=== PATIENT | female | born 1945 | race Caucasian/White ===

== ENCOUNTER 2023-05-09 04:29 | Observation (INO) | payer MEDICARE, BC, SELFPAY ==
[2023-05-08 23:09] VITALS: BP 164/95
[2023-05-09] VITALS (13 sets, daily range): BP systolic 112–172; BP diastolic 68–87; PULSE 71; O2SAT 97; BMI 24.3; BMI 23.7
[2023-05-09 00:39] LABS: Hematocrit 38.8 % (37.0-47.0); Hemoglobin 13.2 g/dL (12.0-16.0); Mean Corpuscular Volume 85.3 fL (81.0-99.0); Mean Platelet Volume 8.8 fL (7.4-10.4); Platelet Count 225 10^3/uL (130-400); Red Blood Cell Count 4.55 10^6/uL (4.20-5.40); White Blood Cell Count 8.4 10^3/uL (4.8-10.8)
[2023-05-09 00:52] LABS: ALT (SGPT) 29 U/L (0-35); AST (SGOT) 35 U/L (14-36); Albumin 3.8 g/dl (3.5-5.0); Alkaline Phosphatase 93 U/L (38-126); Blood Urea Nitrogen 22 mg/dl (7-17); Calcium 9.5 mg/dl (8.4-10.2); Carbon Dioxide 30 mmol/L (22-30); Chloride 100 mmol/L (98-107); Estimated Creatinine Clearance 42 ml/min; Glucose 130 mg/dl (70-99); Potassium 3.2 mmol/L (3.5-5.1); Sodium 138 mmol/L (135-145); Total Bilirubin 0.6 mg/dl (0.2-1.3); Total Protein 6.3 g/dl (6.3-8.2); eGFR > 60.00
--- NOTE | 2023-05-09 01:00 | ED.GENMED ---
History of Present Illness
General
Chief Complaint: Blood Pressure Problem
Source: patient
Exam Limitations: none
Time Seen by Provider: 05/08/23 23:57
Travel History
Have you had any contact with someone who has COVID-19?: No
Do you have any symptoms of coronavirus? Fever > 100 degrees, chills, cough, shortness of breath, sore throat, loss of taste or smell, muscle aches, or headache?: No
History of Present Illness
History of Present Illness:
77-year-old female to 3 days of pulsating sensation in her left ear. Some mild tingling to left arm this evening. Mostly concerned with elevated blood pressure in the 160s over 80s range. Normally much better. Minimal headache. No other acute
neurologic symptoms.
Past History
Past History
ED Past Medical History: HTN
ED Past Surgical History: None
Phy Exam
Physical Exam
Physical Exam:
GENERAL: Alert and oriented in no apparent distress
EYE: Orbits normal. Extraocular muscles intact
NECK: Supple, no carotid bruits
ENT: Pharynx without erythema
CARDIAC: Regular rate and rhythm without any obvious murmurs.
LUNGS: Clear breath sounds,normal
ABDOMEN: Soft, without focal tenderness or distention
NEUROLOGICAL: Alert and oriented , cranial nerves II through XII intact. Speech normal. [id number] normal.
SKIN: Warm and dry, no rash or lesion, no discoloration, skin intact.
MUSCULOSKELETAL: No edema,no deformity.Good color
PSYCH: Normal and appropriate interaction.
Course
Orders/Labs/Results
Orders:
Orders
05/08/23 23:58
Cardiac Monitoring- Treatment ONCE
EKG- Treatment ONCE
Complete Blood Count/No Diff Urgent
Comprehensive Metabolic Panel Urgent
Troponin I Urgent
05/09/23 00:04
CT Head & Neck Angio W/wo IV Urgent
Comment:
Reason For Exam: Hypertension. Pulsating left ear
05/09/23 02:05
Aspirin Chewable [Low Strength Aspirin] 324 mg PO NOW STA
05/09/23 03:11
Potassium Chloride [KCl] 40 meq PO NOW ONE
05/09/23 03:31
Admit/Transfer Patient As Directed
Co-Sign Provider:
Level of Care: Observation services
Assign to:: Telemetry
Physician / Group: Fiordaliza Sewell
Diagnosis: tinnitus; concern for vertebral artery dissection
Reason for Telemetry: CVA/TIA
Date to Stop Telemetry: 05/12/23
Time to Stop Telemetry: 11:00
05/09/23 03:32
Code Status As Directed
Resuscitation Status: Full Code
05/09/23 05:26
Acetaminophen [Tylenol] 650 mg PO Q4HPRN PRN
05/09/23 05:26
MA Neck With Contrast Routine
Comment:
Reason For Exam: possible dissection seen on CTA R vertebral artery
Recent pill cam endoscopy?: No
Activity As Directed
Activity Level: As Tolerated
Neurological Checks As Directed
Frequency: q4h
Additional Instructions:: q4h x 24h upon admission to the floor, then qshift & with any change in condition
and mental status
Pneumatic Compression Sleeves As Directed
Type: Knee high
Vital Signs As Directed
Frequency: Per unit guidelines
DX Deep Vein Thrombosis Video Routine
05/09/23 05:36
Basic Metabolic Panel IN AM
Cardiovascular Evaluation IN AM
Magnesium IN AM
05/09/23 08:00
Pindolol [Visken] 5 mg PO DAILY
05/09/23 22:00
Atorvastatin [Lipitor] 10 mg PO HS
05/10/23 08:00
Aspirin Chewable [Low Strength Aspirin] 81 mg PO DAILY
05/12/23 11:00
DC Protocol for Telemetry ONCE
Abnormal Lab Results
05/09/23
00:23
Potassium 3.2 L mmol/L
(3.5-5.1)
BUN 22 H mg/dl
(7-17)
Glucose 130 H mg/dl
(70-99)
05/09/23 00:23
05/09/23 00:23
Vital Signs
Initial and Last Documented VS:
Initial Vital Signs
Temp Pulse Resp BP Pulse Ox
99.2 F 81 22 164/95 99
05/08/23 23:09 05/08/23 23:09 05/08/23 23:09 05/08/23 23:09 05/08/23 23:09
Last Documented Vital Signs
Temp Pulse Resp BP Pulse Ox
98.3 F 78 20 112/68 95
05/09/23 16:14 05/09/23 17:00 05/09/23 16:14 05/09/23 16:14 05/09/23 16:14
MDM/Problems Addressed
Differential Diagnosis Includes:
Patient with pulsating in her left ear with some minimal vague neurologic symptoms of paresthesias to the left arm. Patient has sensation clinically and has a normal neurologic exam.CT angio pending.
*Pulse Oximetry
Patient hypoxic: no
*EKG
Interpreted by ED Provider?: Yes
Interpretation: normal
Comparison EKG: no comparison EKG present
Heart Rate: 77
Rate: normal
Rhythm: sinus and PVC's
Casey: normal axis
Interval: normal interval
QRS Pattern: normal QRS
Ischemia: no ischemia
*Critical Care Note
Total Time (30-74mins, 75-104mins- exclusive of procedures): Not Applicable
Update Note
Update Note:
CT scan shows a tortuosity at the right vertebral artery C1-C2. Could be the sequela of fibromuscular dysplasia or dissection. Although no flap. With patient's left-sided numbness and CT findings patient will be admitted for MRI. Aspirin given.
ED Attending Note
-
Portions of this chart may have been created with voice recognition software.� Occasional wrong word or��sound alike� substitutions may have occurred due to the inherent limitations of voice recognition software.
Discharge Plan
Departure
Patient Disposition: Admit
Date of Disposition: 05/09/23
Time of Disposition: 02:20
Presentation/result/management discussed w/ accepting MD/DO: Hospitalist
Discharge Problem:
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
Interventions
Interventions:
*Risk Screen - Suicide Last Done: 05/09/23 05:36
*General Assessment Last Done: 05/09/23 00:22
*Neglect/Abuse Screening Last Done: 05/09/23 00:22
ED- Fall Risk Assessment Last Done: 05/09/23 00:35
*ED COVID-19 Vaccine History Last Done: 05/09/23 05:36
*Nursing Disposition Last Done: 05/09/23 05:40
ED- Cardiac Assessment Last Done: 05/09/23 00:35
ED- Neurological Assessment Last Done: 05/09/23 01:05
ED- Pulmonary Assessment Last Done: 05/09/23 00:35
Discharge Date and Time
Discharge Date/Time: 05/09/23 05:41
[2023-05-09 01:01] LABS: Troponin I < 0.012 ng/ml
[2023-05-09] MEDS: LOW STRENGTH ASPIRIN 324 MG PO (02:12)
--- NOTE | 2023-05-09 03:11 | HPS.HSE ---
Addendum entered and electronically signed by Fiordaliza Sewell MD 05/09/23 06:44:
will consult neuro given assoc. left arm numbness and for confirmation correct follow up studies are ordered.
Addendum entered and electronically signed by Fiordaliza Sewell MD 05/09/23 06:36:
Left arm numbness was resolved on my interview, no other deficits. I suspect it was related to anxiety as patient reports being very anxious with reading of SBP 160's and this followed.
Original Note:
Family Physician
-
Family Physician: Geraldine Balderas DO
Chief Complaint
-
pulsatile sensation left ear + left arm numbness
History of Present Illness
Ms. Tori Oconnell is a 77 yo woman with hx HTN who presents to the ER with pulsating sensation in left ear x 3 days and some mild tingling in left arm last evening.
Patient started checking her BP once felt pulsatile tinnitus and it was climbing to systolic 140's and 160's. After she saw that blood pressure she experienced left arm tingling and decided to come to the ER.
Denies vision changes. No headache. No weakness in arms or legs. No difficulty speaking. 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 No nausea/vomiting/abdominal pain. No recent new medications.
Currently patient states tinnitus is improving and left arm numbness resolved.
Medical History
Past Medical History
Past Medical History: Reports HTN
Past Surgical History: Reports None
Social History
Tobacco: Non-smoker
Alcohol: None
Family History
Family History: Not pertinent
Allergies / Home Medications
Allergies reflects when Allergies were last updated in [employer].
Home Medications with original date entered in [employer]
Allergy/Medication List:
Allergies
Allergy/AdvReac Type Severity Reaction Status Date / Time
No Known Allergies Allergy Unverified 05/08/23 23:09
Review of Systems
-
History Source: Patient
A 12 point ROS was completed and negative except as noted: Yes
Physical Exam
Vital Signs
Vital Signs
Temp Pulse Resp BP Pulse Ox
99.2 F 76 19 143/78 95
05/08/23 23:09 05/09/23 03:00 05/09/23 03:00 05/09/23 03:00 05/09/23 03:00
Physical Exam
General: No Apparent Distress
HEENT: PERRLA
Respiratory: Clear; No Wheezes
Cardiac: S1/S2 and Regular Rhythm
GI: Soft and Non Tender
Musculoskeletal: No Edema
Neuro: AO x 3 and Other (GURINDER, EOMI, no facial asymmetry, 5/5 strength upper and lower extremities )
Psych: Calm
Laboratory Results
-
05/09/23 00:23
05/09/23 00:23
Laboratory Results
Total Bilirubin 0.6 mg/dl (0.2-1.3) 05/09/23 00:23
AST 35 U/L (14-36) 05/09/23 00:23
ALT 29 U/L (0-35) 05/09/23 00:23
Alkaline Phosphatase 93 U/L (38-126) 05/09/23 00:23
Troponin I < 0.012 ng/ml 05/09/23 00:23
Data Reviewed
-
Diagnostic Radiology: Report Reviewed by me
Lab Data: Labs Reviewed by me
Impression/Plan
-
Ms. Tori Oconnell is a 77 yo woman with hx HTN who presents to the ER with pulsating sensation in left ear x 3 days and some mild tingling in left arm last evening.
Triage VS: T 99.2, P 81, RR 22, BP 164/95, SpO2 99%
LABS: WBC 8.4, Hg 13.2, PLT 225, Na 138, K+ 3.2, BUN 22, Cr 0.9, Glucose 130, liver enzymes WNL
CTA prelim 'tortuous right vertebral artery at C1-C2 could be dissection, no thrombus...'
Pulsatile Tinnitus
Left arm numbness
-CTA with possible dissection (although on opposite side of tinnitus)
-given aspirin in the ER
-will admit to observation for MRA
-continue aspirin for now
-neuro checks
-neuro consult if MRA confirms dissection
-consider ENT follow up at discharge
HTN
-hold HCTZ given tinnitus
-continue SEA SHELL GATHERER Pindolol
HLD
-SEA SHELL GATHERER statin
DVT PPx SCD
FULL CODE
[2023-05-09] MEDS: KLOR-CON 40 MEQ PO (05:54)
[2023-05-09 06:07] LABS: Blood Urea Nitrogen 17 mg/dl (7-17); Calcium 9.4 mg/dl (8.4-10.2); Carbon Dioxide 33 mmol/L (22-30); Chloride 102 mmol/L (98-107); Estimated Creatinine Clearance 42 ml/min; Glucose 117 mg/dl (70-99); HDL Cholesterol 95 mg/dl; LDL Cholesterol, Calculated 63 mg/dl; Magnesium 1.8 mg/dl (1.6-2.3); Potassium 3.4 mmol/L (3.5-5.1); Sodium 139 mmol/L (135-145); Total Cholesterol 177 mg/dl (50-199); Triglyceride 99 mg/dl (10-149); Very Low Density Lipoprotein 19 mg/dl (0-30); eGFR > 60.00
--- NOTE | 2023-05-09 06:10 | PTCARENOTE ---
Pt admitted to IVU from ED. Pt belongings with pt. Oriented to room and floor. Pt AAOx3, NIH scale score 0. Neuro intact. Pt c/o 7 out of 10 neck pain. Pt denying tylenol for pain, pt states pain is 'probably from how I was lying downstairs' and 'it
is already getting better'. Pt no c/o weakness/numbness in extremities. Pt extremely anxious for MRI, states they get claustrophobic. Educated pt on exam. Pt states no further questions at this time. Pt informed to notify RN if any changes in status
or any questions, call nguyen within reach.
Upon admission to IVU, pt states they were unable to ingest potassium pills in ED. ED nurse confirmed. TT DRESSMAKING TEACHER Amna. 40meq powder form K replacement ordered, labs drawn prior to administration of K. K result 3.4.
[2023-05-09] MEDS: ATIVAN 0.5 MG IV (08:40)
[2023-05-09] MEDS: VISKEN 5 MG PO (09:49)
--- NOTE | 2023-05-09 11:37 | CM ---
Chart reviewed. Patient is independent of ADLS, lives with her in a 2 [address], 1 [address], 0 DME. Patient currently without any discharge needs. Plan is for the patient to return home. CM to follow
--- NOTE | 2023-05-09 12:12 | CON.NEURO ---
Consultation
Order
Date of Consultation: 05/09/23
Reason for Consult: pulsatile tinnitus
CC: none
HPI: This is a 77-year-old right-handed woman who presented to [facility] on May 08, 2023 with transient left arm paresthesias, tinnitus and elevated blood pressure. According to the patient her blood pressure has been running
high over the last several days before she developed left-sided tinnitus and transient left arm paresthesias lasting for less than 24 hours. No reports of motor weakness, change in vision, facial pain, imbalance, vertigo, ear pain, dysarthria or
change in language. Ms. Oconnell states that her symptoms fully resolved since the admission. No recently started medications.
ER VS: 164/95-172/82, 76�100, afebrile.
EKG�normal sinus rhythm
Labs: Glucose 117, patient 3.4, normal WBCs, platelets, LDL�63
Brain MRI�no acute infarcts, chronic sinus disease.
MRA head�no AVMs, dissection or fistulas.
PMH: HTN, DLP, CKD,
PSH: Bilateral cataract surgery, left bunionectomy
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
FH: father-lung, Ca, mother-CAD
All: NKDA
ROS:Constitutional: Negative. Negative for chills, fever and unexpected weight change.
HENT: Positive for intermittent left-sided tinnitus
Eyes: Negative. Negative for photophobia, pain and visual disturbance.
Respiratory: Negative for cough, choking and shortness of breath.
Cardiovascular: Negative for chest pain, palpitations and leg swelling.
Gastrointestinal: Negative for abdominal pain and vomiting.
Endocrine: Negative. Negative for cold intolerance.
Genitourinary: Negative for dysuria, flank pain and urgency.
Musculoskeletal: Negative for back pain, gait problem, neck pain and neck stiffness.
Skin: Negative for rash.
Allergic/Immunologic: Negative. Negative for immunocompromised state.
Neurological: Positive for transient left arm paresthesias
Psychiatric/Behavioral: Negative for behavioral problems, confusion and hallucinations.
General: Well developed. In no acute distress.
Cardio: Regular rate and rhythm without murmur. Extremities are without cyanosis or edema.
Neuro:
Mental Status: Alert, oriented to person, place, and date. Normal attention and recall. Good fund of knowledge. Follows complex requests across the midline. Comprehension, naming, and repetition intact. Immediate and delayed recall 3/3.
Cranial Nerves: Intermittent R esodeviation on primary gaze(pt states it's chronic and started after cataract surgery) Pupils are equally round and reactive to light. EOMs full. Visual martinez full to confrontation. No ptosis. No nystagmus.
V1-V3 intact to light touch and pinprick bilaterally, symmetric. Face symmetric. Normal hearing AU. The palate elevated well. SCMs and traps 5/5. Tongue midline. No dysarthria.
Motor: Normal bulk and tone. No pronator or arm drift. Strength 5/5 throughout. No clonus.
Reflexes: 2+ throughout the upper extremities and knees. Plantar responses flexor bilaterally.
Sensory: Normal vibration and JPS.
Coordination: No dysmetria or tremor.
Gait: deferred
Assessment and Plan:
I. Transient left arm parasthesias. Cervical DJD.
II. Transient pulsatile tinnitus
III. DLP
Telemetry monitoring
-ASA 81 mg QD
-Avoid medications known to cause tinnitus as a side effect (diuretics, NSAIDs)
-ENT consult
-ESR, CRP, ua tox
-TTE
-Neuro-ophthalmology consult
-OP NCS/EMG of LUE
-OP Neurology follow up(may consider CSF studies to rule out IIH if symptoms return) in 2-3 weeks
I personally reviewed all radiology and labs along with past medical records pertinent to current medical problems. Total time spent in patient care is 60 minutes.
Thank you for allowing us to participate in the care of this patient. Please do not hesitate to contact us with any questions or concerns.
Subjective/Objective
Subjective Data
Date of Service: May 09, 2023
Objective Data
Vital Signs
Temp Pulse Resp BP Pulse Ox
37.2 C 75 20 134/75 97
05/09/23 07:05 05/09/23 10:15 05/09/23 07:05 05/09/23 09:54 05/09/23 07:05
Lab Results
05/09/23 00:23
05/09/23 05:36
Sodium 139 mmol/L (135-145) 05/09/23 05:36
Potassium 3.4 mmol/L (3.5-5.1) L 05/09/23 05:36
BUN 17 mg/dl (7-17) 05/09/23 05:36
Glucose 117 mg/dl (70-99) H 05/09/23 05:36
Calcium 9.4 mg/dl (8.4-10.2) 05/09/23 05:36
LDL Cholesterol, Calc 63 mg/dl 05/09/23 05:36
Patient Allergies
No Known Allergies Allergy (Unverified 05/08/23 23:09)
Medications
-
Active Medications
Generic Name Dose Route Start Last Admin
Trade Name Freq PRN Reason Stop Dose Admin
Acetaminophen 650 mg 05/09/23 05:26
Acetaminophen 325 Mg Tablet PO 06/06/23 05:25
Q4HPRN PRN
SHETH, mild pain, or temp >100.4F
Aspirin 81 mg 05/10/23 08:00
Aspirin 81 Mg Chewable Tablet PO 06/07/23 07:59
DAILY FLORY
Atorvastatin Calcium 10 mg 05/09/23 22:00
Atorvastatin (Lipitor) 10 Mg Tablet PO 06/06/23 21:59
HS FLORY
Lorazepam 0.5 mg 05/09/23 06:36 05/09/23 08:40
Lorazepam 2 Mg/Ml Vial IV 06/06/23 06:35 0.5 mg
ONCE PRN PRN Administration
give 30 minutes prior to MRI
Pindolol 5 mg 05/09/23 08:00 05/09/23 09:49
Pindolol 5 Mg Tablet PO 06/06/23 07:59 5 mg
DAILY FLORY Administration
Sodium Chloride 0.25 ml 05/09/23 06:38
Nss (Pf) 10 Ml Vial For Ativan 0.5 Mg Dose IV 06/06/23 06:37
ONCE PRN
TO DILUTE LORAZEPAM
Home Medications
Medication Instructions Recorded
hydrochlorothiazide 25 mg tablet 25 mg PO DAILY 05/09/23
pindolol 5 mg tablet 5 mg 05/09/23
simvastatin 20 mg tablet 20 mg PO HS 05/09/23
Vital Signs and Labs
-
Vital Signs and Labs:
Vital Signs
Temp Pulse Resp BP Pulse Ox
36.9 C 75 20 134/75 97
05/09/23 12:27 05/09/23 10:15 05/09/23 12:27 05/09/23 09:54 05/09/23 12:27
Lab Results
05/09/23 00:23
05/09/23 05:36
Sodium 139 mmol/L (135-145) 05/09/23 05:36
Potassium 3.4 mmol/L (3.5-5.1) L 05/09/23 05:36
BUN 17 mg/dl (7-17) 05/09/23 05:36
Glucose 117 mg/dl (70-99) H 05/09/23 05:36
Calcium 9.4 mg/dl (8.4-10.2) 05/09/23 05:36
LDL Cholesterol, Calc 63 mg/dl 05/09/23 05:36
Home Medications
-
Home Medications
hydrochlorothiazide 25 mg tablet 25 mg PO DAILY 05/09/23
pindolol 5 mg tablet 5 mg 05/09/23
simvastatin 20 mg tablet 20 mg PO HS 05/09/23
Medications
-
Medications:
Generic Name Dose Route Start Last Admin
Trade Name Freq PRN Reason Stop Dose Admin
Acetaminophen 650 mg 05/09/23 05:26
Acetaminophen 325 Mg Tablet PO 06/06/23 05:25
Q4HPRN PRN
SHETH, mild pain, or temp >100.4F
Aspirin 81 mg 05/10/23 08:00
Aspirin 81 Mg Chewable Tablet PO 06/07/23 07:59
DAILY FLORY
Atorvastatin Calcium 10 mg 05/09/23 22:00
Atorvastatin (Lipitor) 10 Mg Tablet PO 06/06/23 21:59
HS FLORY
Lorazepam 0.5 mg 05/09/23 06:36 05/09/23 08:40
Lorazepam 2 Mg/Ml Vial IV 06/06/23 06:35 0.5 mg
ONCE PRN PRN Administration
give 30 minutes prior to MRI
Pindolol 5 mg 05/09/23 08:00 05/09/23 09:49
Pindolol 5 Mg Tablet PO 06/06/23 07:59 5 mg
DAILY FLORY Administration
Sodium Chloride 0.25 ml 05/09/23 06:38
Nss (Pf) 10 Ml Vial For Ativan 0.5 Mg Dose IV 06/06/23 06:37
ONCE PRN
TO DILUTE LORAZEPAM
--- NOTE | 2023-05-09 12:39 | W.PN.HOSP.TC ---
Today's Communication/Plan
-
Neurology was consulted
Monitor blood pressure
Replete KCl
PT OT ordered
Assessment / Plan
Assessment / Plan
Pulsatile Tinnitus ? SE of HCTZ
Left arm numbness-resolved
-CTA with possible dissection (although on opposite side of tinnitus)
-given aspirin in the ER
-MR brain no acute intracranial process. Mild age-appropriate volume loss and mild leukoaraiosis. Chronic sinus disease. Degenerative disc and joint disease of cervical spine incompletely imaged.
-MRA neck-no finding to suggest an acute dissection of the right vertebral artery. The distal right vertebral artery is tortuous, however no focal stenosis or abnormal signal intensity adjacent to or within the vertebral artery. Remainder of the
exam was unremarkable. There is less than 50% stenosis of the ICA bilaterally.
-continue aspirin for now
-neuro checks
-neuro consulted
-consider ENT follow up at discharge�
HTN Primary
-hold HCTZ given tinnitus
-continue WATER TREATMENT PLANT SUPERVISOR Pindolol
-can start norvasc if needed
HLD
-WATER TREATMENT PLANT SUPERVISOR statin
Hypokalemia likely secondary to diuretics
-Replete and monitor.
DVT PPx SCD
FULL CODE
PT/OT
Anticipated Discharge: Within 24 hours
Subjective/Interval History
-
Date of Service: May 09, 2023
states of mild ringing in Left ear
no LUE numbing or tingling or focal weakness
Denies any focal weakness
Objective Data
-
Labs:
Laboratory Results
05/09/23 05/09/23
00:23 05:36
WBC 8.4
Hgb 13.2
Hct 38.8
Plt Count 225
Sodium 138 139
Potassium 3.2 L 3.4 L
Chloride 100 102
Carbon Dioxide 30 33 H
BUN 22 H 17
Creatinine 0.9 0.9
Glucose 130 H 117 H
Calcium 9.5 9.4
Total Bilirubin 0.6
AST 35
ALT 29
Alkaline Phosphatase 93
Vital Signs:
Vital Signs
Temp Pulse Resp BP Pulse Ox
98.5 F 75 20 134/75 97
05/09/23 12:27 05/09/23 10:15 05/09/23 12:27 05/09/23 09:54 05/09/23 12:27
Physical Exam
-
General: Well Developed and No Apparent Distress
HEENT: Normocephalic, Atraumatic and Moist Mucous Membranes
Respiratory: Clear to Auscultation
Cardiac: Regular Rhythm and S1/S2; Negative Murmur, Rub or Gallop
GI: Soft, Nontender, Nondistended and Normal Bowel Sounds; Negative Organomegaly
Rectal: Deferred by Provider
Musculoskeletal: No Clubbing, No Cyanosis and No Edema
Skin: Negative Rash
Neuro: Awake, Alert, Oriented, AO x 3, No Motor Deficits and Nonfocal/Grossly Intact
Psych: Calm
--- NOTE | 2023-05-09 14:57 | PTOTSP ---
Pt is functionally independent and at baseline. PT will sign off.
[2023-05-09 15:23] LABS: Erythrocyte Sed Rate 25 mm/hour (0-20)
--- NOTE | 2023-05-09 16:40 | W.DCSUMMARY ---
Discharge Summary
Discharge Data
Date of Admission: 05/09/23
Date of Discharge: 05/10/23
-
Pending Results: No
Hospital Course
77-year-old female with past medical history of primary hypertension, hyperlipidemia who is presented with left ear tinnitus and intermittent left upper extremity tingling. Patient underwent CTA head and neck which shoed tortuosity and irregularity
of the right vertebral artery between C1 and C2 without occlusion, possibly secondary to sequelae of prior focal dissection or fibromuscular dysplasia. Underwent MRA neck there is no finding to suggest an acute dissection of the right vertebral
artery. The distal right vertebral artery is tortuous, however no focal stenosis or abnormal signal intensity adjacent to or within the vertebral artery. Remainder of the exam was unremarkable. There is less than 50% stenosis of the ICA bilaterally.
MR of the brain There is no acute intracranial process. Mild age-appropriate volume loss and mild leukoaraiosis. Patient was referred physical and Occupational Therapy. Patient was eval by neurology recommended daily aspirin. Patient went to
follow-up outpatient with neurology. Patient numbing tingling resolved. Could have been due to osteoarthritis of the cervical spine. Tinnitus could have been a side effect of HCTZ which was discontinued and patient will follow-up with primary
doctor for further blood pressure management.
Discharge Plan
-
Patient Disposition: Home (Routine Discharge)
Discharge Diagnosis/Procedures: Transient left arm parasthesias. Cervical DJD.
Left ear pulsatile tinnitus
Condition: Fair
Diet: As tolerated
Activity: With assistance and As tolerated
Driving Restrictions: As prior to admission
Stop these medications:: Hydrochlorothiazide was discontinued.
Referrals:
Bhavik Call MD [Active] - in one to two weeks (call to make appt- NCS/EMG of LUE)
Linus Stone MD [Active] - in one week (call to make appt. )
Geraldine Balderas DO [Family Provider] - in less than 1 week (Follow-up with primary doctor for blood pressure management.)
Prescriptions:
New
aspirin [Children's Aspirin] 81 mg Tablet,Chewable
81 mg PO DAILY 30 Days Qty: 30 0RF
Continued
simvastatin 20 mg Tablet
20 mg PO HS
pindolol 5 mg Tablet
5 mg
Discontinued
hydrochlorothiazide 25 mg Tablet
25 mg PO DAILY
Discharge Orders:
Discharge Patient (As Directed); Ordered 05/09/23
Ordered By: Jarod Clifford
Care Plan Goals
Care Plan Goals:
Problem: Readiness for enhanced knowledge related to diagnosis and treatment plan
Goal: Understand your diagnosis and treatment plan needs, including medications if applicable.
Instructions: Know your diagnosis, underlying causes and treatment plan options, including medications if applicable. Consult with your health care team to learn about your diagnosis and treatment plan, including medications if applicable.
Discharge Date and Time
Discharge Date/Time: 05/09/23 17:36
== END 2023-05-09 17:36 | disposition home or self-care (01) ==
LOC: IVU 04:29
PROVIDERS: Emergency Medicine; ADMITTING PHYSICIAN Student in an Organized Health Care Education/Training Program; ATTENDING PHYSICIAN Hospitalist; CONSULT PHYSICIAN Psychiatry & Neurology Neurology; EMERGENCY PHYSICIAN Emergency Medicine; FAMILY PHYSICIAN Internal Medicine
DX: H93.A2 Pulsatile tinnitus, left ear (principal); R51.9 Headache, unspecified; R20.2 Paresthesia of skin; M47.812 Spondylosis without myelopathy or radiculopathy, cervical region; I10 Essential (primary) hypertension; R20.0 Anesthesia of skin; F41.9 Anxiety disorder, unspecified; E78.5 Hyperlipidemia, unspecified; E87.6 Hypokalemia
CPT/HCPCS: 70496; 70498; 70548; 70551; 80048; 80053; 80061; 83735; 84484; 85027; 85652; 86140; 93005; 93306; 97161; 99285; A9585; G0378; Q9967

== ENCOUNTER 2023-08-28 06:24 | Day surgery (SDC) | payer MEDICARE, BC, SELFPAY ==
--- NOTE | 2023-07-28 09:46 | CM ---
Patient is scheduled for an elective L TKR on 08/28/23- she is a same day patient. Spoke with patient prior to surgery. Introduced role of Orthopedic Navigator. Patient reports that she lives with her in a two story home. There is one step to
enter and a flight of steps to the second floor. She currently functions independently and occasionally uses a cane. She also has a shower seat and rolling walker. She has never had VN services. PCP is Geraldine Balderas.
Discussed orthopedic program and post surgical plans. Reviewed that she will have VN services initially (medicare.gov website and ratings reviewed) and will then start outpatient PT. Patient selects [facility] (face sheet faxed to [facility] to facilitate
confirmation of benefits) for her home care needs and will go to [facility] for outpatient PT.
Patient is in agreement with plan and states that her will be home with her.
Patient will complete online education.
Plan: Orthopedic Navigator will remain available to assist with the care of patient and will reassess discharge needs after surgery.
[2023-08-06 14:05] VITALS: BMI 24.3
[2023-08-06 14:25] LABS: Hematocrit 40.7 % (37.0-47.0); Hemoglobin 13.5 g/dL (12.0-16.0); Mean Corp Hgb Conc. 33.2 g/dL (33.0-37.0); Mean Corpuscular Hgb 28.8 pg (27.0-31.0); Mean Corpuscular Volume 86.8 fL (81.0-99.0); Mean Platelet Volume 8.9 fL (7.4-10.4); Platelet Count 240 10^3/uL (130-400); Red Blood Cell Count 4.69 10^6/uL (4.20-5.40); Red Cell Dist. Width 12.8 % (11.5-14.5); White Blood Cell Count 7.2 10^3/uL (4.8-10.8)
[2023-08-06 14:50] VITALS: BMI 24.3
[2023-08-06 15:05] LABS: ALT (SGPT) 27 U/L (0-35); AST (SGOT) 35 U/L (14-36); Albumin 4.6 g/dl (3.5-5.0); Alkaline Phosphatase 84 U/L (38-126); Blood Urea Nitrogen 19 mg/dl (7-17); Calcium 10.7 mg/dl (8.4-10.2); Carbon Dioxide 29 mmol/L (22-30); Chloride 102 mmol/L (98-107); Estimated Creatinine Clearance 38 ml/min; Glucose 91 mg/dl (70-99); Potassium 4.3 mmol/L (3.5-5.1); Sodium 141 mmol/L (135-145); Total Bilirubin 0.6 mg/dl (0.2-1.3); Total Protein 7.2 g/dl (6.3-8.2); eGFR 58.39
[2023-08-07 12:02] LABS: Glycohemoglobin (HgbA1c) 5.5 % (4.0-5.6)
[2023-08-28] VITALS (19 sets, daily range): BP systolic 106–180; BP diastolic 60–93; PULSE 65–81; O2SAT 94–95; BMI 24.3
--- NOTE | 2023-08-28 06:42 | W.DS.TRANS ---
DC Summary - Technical Engineer
-
Discharge Instructions:
Sleep Apnea Risk Low
Discharge Diagnosis/Procedures Millicent Grissom 08/28/23
Diet As tolerated
Activity With Walker
Driving Restrictions No driving
Instructions:
Stand-Alone Forms: SDS Total Hip and Knee D/C
Changes to Home Medications: Yes
Discharge Medications:
DC Medications w/original date entered in [employer]
simvastatin 20 mg tablet 20 mg PO HS High Cholesterol 05/09/23
ascorbic acid (vitamin C) 500 mg tablet (Vitamin C) 500 mg PO DAILY 07/31/23
cetirizine 10 mg tablet (Zyrtec) 10 mg PO 1400 07/31/23
cholecalciferol (vitamin D3) 25 mcg (1,000 unit) tablet (Vitamin D3) 25 mcg PO DAILY 07/31/23
fluticasone propionate 50 mcg/actuation nasal spray,suspension 1 spray intranasal DAILY 07/31/23
losartan 25 mg tablet 25 mg PO DAILY 07/31/23
mecobalamin (vitamin B12) 1,000 mcg chewable tablet (B12 Active) 1,000 mcg PO DAILY 07/31/23
multivitamin 1 tab PO DAILY 07/31/23
pyridoxine (vitamin B6) 100 mg tablet 100 mg PO DAILY 07/31/23
zinc 25 mg tablet 25 mg PO DAILY 07/31/23
famotidine 20 mg tablet 20 mg PO HS GI prophylaxis #30 tabs 08/06/23
gabapentin 300 mg capsule 300 mg PO HS sleep/pain #10 caps 08/06/23
mupirocin 2 % topical ointment 1 applic topical BID infection prevention #1 tube 08/06/23
ondansetron 4 mg disintegrating tablet 4 mg PO Q6H PRN n/v #20 tabs 08/06/23
prednisone 10 mg tablet 40 mg (4 x 10 mg) PO TAPER inflammation #20 tabs 08/06/23
tramadol 50 mg tablet 50 mg PO Q6H PRN 1 tab moderate pain, 2 if severe #30 tabs 08/06/23
acetaminophen 325 mg capsule (Tylenol) 650 mg (2 x 325 mg) PO QID #2 caps 08/28/23
aspirin 325 mg tablet 325 mg PO DAILY blood clot prevention #1 tab 08/28/23
docusate sodium 100 mg capsule (Colace) 100 mg PO BID stool softner #1 cap 08/28/23
magnesium hydroxide 400 mg/5 mL oral suspension (Milk of Magnesia) 30 ml PO HS PRN Constipation #1 mL 08/28/23
sennosides 8.6 mg tablet (Senokot) 17.2 mg (2 x 8.6 mg) PO BID laxative #2 tabs 08/28/23
Home Medication Changes
famotidine 20 mg tablet 20 mg PO HS GI prophylaxis #30 tabs 08/06/23
gabapentin 300 mg capsule 300 mg PO HS sleep/pain #10 caps 08/06/23
mupirocin 2 % topical ointment 1 applic topical BID infection prevention #1 tube 08/06/23
ondansetron 4 mg disintegrating tablet 4 mg PO Q6H PRN n/v #20 tabs 08/06/23
prednisone 10 mg tablet 40 mg (4 x 10 mg) PO TAPER inflammation #20 tabs 08/06/23
tramadol 50 mg tablet 50 mg PO Q6H PRN 1 tab moderate pain, 2 if severe #30 tabs 08/06/23
Pending Results: No
[2023-08-28] MEDS: TYLENOL 650 MG PO (07:37)
[2023-08-28] MEDS: CELEBREX 200 MG PO (07:37)
[2023-08-28] MEDS: NORMOSOL-R 1000 IV (07:50)
[2023-08-28] MEDS: ANCEF 5 IV (12:52)
--- NOTE | 2023-08-28 13:38 | CM ---
Addendum entered by JESSICA Orr 08/28/23 15:57:
updated home care team, spinal has not worn off. plan PT to see patient at 4:30 then hopefully home.
Original Note:
Patient had planned L TKR today. Met with patient and daughter at bedside to review discharge plans. Patient will be returning home today with services through [facility]. On Friday, 08/31, patient will start outpatient PT at [facility]. Reviewed MD
follow up in two weeks and patient is aware of need to schedule appointment.
Patient has rolling walker here.
PT and VN were kept updated as to progress and discharge plans.
[2023-08-28] MEDS: ZOFRAN 4 MG IV (14:15)
[2023-08-28] MEDS: TYLENOL 1000 MG PO (14:29)
--- NOTE | 2023-08-28 16:41 | OR.RPT ---
Operative Report
Operative Report
Orthopaedic Surgery Operative Note
DATE OF OPERATION: 08/28/2023
PREOPERATIVE DIAGNOSES: Osteoarthritis, left knee.
POSTOPERATIVE DIAGNOSES: Osteoarthritis, left knee.
OPERATION PERFORMED:
1) Left total knee arthroplasty (CPT 81141)
2) Intraosseous administration of analgesic (CPT 55289)
SURGEON: Nader Grissom MD
ASSISTANTS: Jose Duarte PA-C who helped with patient and limb positioning and retraction
ANESTHESIA: Spinal by anesthesia plus intraoperative infusion of morphine into the tibial metaphysis by Dr. Grissom
COMPLICATIONS: None.
ESTIMATED BLOOD LOSS: 20mL
DRAINS: None
TOURNIQUET TIME: 41 minutes.
IMPLANTS:
- Khanh Persona CR Femur, size 6
- Khanh Persona tibia base plate, size C
- Khanh Persona ultracongruent articular surface, 11mm
- DJO [place] bone cement
INDICATIONS: The patient presented to my office with debilitating left knee pain due to osteoarthritis. We reviewed the natural history of this problem, as well as the risks, benefits, and alternatives of various treatment options. The patient
exhausted all nonoperative treatment options and wished to proceed with knee replacement surgery. The patient understood the risks which included, but were not limited to, bleeding, infection, failure to relieve pain, more pain than preop, damage to
blood vessels and nerves, need for reoperation, mechanical failure of the implants, wound healing problems, stiffness, instability, blood clot, pulmonary embolism, myocardial infarction, pneumonia, arrhythmia, CVA, and . The patient accepted
these risks and wished to proceed. All questions were answered, and informed consent was obtained.
PROCEDURE IN DETAIL: The patient was identified in the preoperative holding area. The left knee was identified as the operative site. The patient was taken in the operating room and placed in a supine position on the operating table. Spinal
anesthesia was performed. IV antibiotics and tranexamic acid were administered. An SCD was placed on the right lower extremity. A well-padded tourniquet was placed on the proximal thigh. All bony prominences were well padded. The left lower
extremity was prepped and draped in the usual sterile fashion.
We performed a surgical time-out. An interarticular block was performed with local anesthetic with epinephrine. I performed interosseous administration of morphine-saline solution via a Jamshidi style intraosseous needle into the proximal medial
tibial metaphysis as described by Cyrus Bean MD. This was performed to aid in pain control. The limb was exsanguinated with an Esmarch bandage, then the tourniquet was inflated to 250 mmHg. A midline skin incision was made followed by a medial
parapatellar arthrotomy. A subperiosteal peel was performed on the medial tibia. I excised part of the infrapatellar fat pad to improve our visualization as well as tissue over anterior femur. The patella was everted and the knee was flexed. I
excised the remnants of the anterior and posterior cruciate ligaments as well as tibial and femoral osteophytes with rongeurs.
The knee was flexed, and the extramedullary tibial cutting guide was aligned. [place] was aligned at neutral, rotation was centered on the tibial tubercle, and coronal alignment was aligned with the mechanical axis of the tibia and center of the ankle
joint. The cut height was 10mm off the lateral tibia joint surface. The guide was secured into place. The MCL and LCL were protected. The tibia surface was cut. The cut surface was inspected after removal to ensure appropriate height and slope based
on the preoperative plan. The cut was checked with a drop silas. It was centered nicely at the ankle.
A drill was used to open the femoral canal. The intramedullary distal femoral cutting guide was inserted into the femur. This was set at 5 degrees +0. This was secured into place with three pins. The cut level was checked with an joleen wing. The
distal femur was cut through the cutting guide. The IM guide was reinserted to double check that the level of resection was flush and in appropriate alignment.
[place]�s line and the transepicondylar axis were marked on the femur. The femoral sizing guide was applied to the anterior femur. Pins were inserted, and the 4-in-1 cutting guide was applied and secured into place. The rotation was compared to
Ruth�s line, the transepicondylar axis, and the neutral tibia cut and was found to be appropriate. The width was checked and found to be appropriate and lateralized on the femur. The anterior, posterior, and chamfur cuts were made. A lamina
investigations chief was used to open the flexion gap, and posterior osteophytes were removed with a curved osteotome. The remnant medial and lateral meniscus were also removed. I prophylactically cauterized the lateral geniculate arteries. A 10mm spacer block
was applied to the flexion gap and was noted to be balanced medially and laterally. The knee was extended, and the block showed symmetric to extension and flexion gaps.
The tibia was exposed and sized. Rotation was set in line with the tibial tubercle and congruent with the femur. The trial was secured into place with two pins. The trial femur was impacted into place, and a trial articular surface was placed. The
knee was taken through range of motion and noted to be stable throughout the arc of motion without gaping or excess tension. The patella tracked centrally throughout the arc of motion without need for further releases. No full thickness cartilage
defects.
The trials were removed. The tibia keel was prepared with the punch and the drill. The bone surfaces were irrigated with sterile saline and dried. The cement was mixed in a vacuum mixer. Cement gun was used to apply cement to the tibial surface and
the undersurface of the tibial implant. Cement was pressurized into the tibial canal and tibia surface. The tibial component was impacted into place. Excess cement was removed. Cement was applied to the femoral surface and the femoral component. The
femoral component was impacted into place, and excess cement removed. A trial articular surface was inserted, and the knee was extended while the cement polymerized. The tourniquet was let down, and meticulous hemostasis was achieved. Dilute
betadine was poured into the wound and allowed to soak for 3 minutes. The knee was irrigated with copious normal saline.
Once the cement was polymerized, the trial articular surface was removed. Any excess cement was removed. The knee was trialed, and the final articular surface was selected and inserted into the tibial locking mechanism. The knee was reduced. A fresh
drape was applied to the surgical field.
The arthrotomy was closed with 0-PDS. Once closed, an interarticular block was performed with local anesthetic with epi. The deep dermal layer was closed with 2-0 PDS, and the subcuticular skin was closed with 3-0 monocryl. A Dermabond Prineo
dressing was applied to the skin in full flexion. Once this was completely dry, a sterile waterproof dressing was applied.
The anesthesia team performed an adductor canal block in the OR. The patient awoke from anesthesia without any difficulties. The sponge and instrument counts were correct x2 at the end of the case.
Ernie Grissom MD
== END 2023-08-28 16:49 | disposition home or self-care (01) ==
LOC: SDS 06:24
PROVIDERS: ATTENDING PHYSICIAN Orthopaedic Surgery; FAMILY PHYSICIAN Internal Medicine; OTHER PHYSICIAN Physician Assistant Medical
DX: M17.12 Unilateral primary osteoarthritis, left knee (principal)
CPT/HCPCS: 27447; 36680; 36415; 73560; 80053; 83036; 85027; 87070; 97116; 97161; 97530; C1713; C1776

== ENCOUNTER 2023-09-01 20:30 | Emergency (ER) | payer MEDICARE, BC, SELFPAY ==
[2023-09-01 20:34] VITALS: BP 185/111; BMI 23.8
--- NOTE | 2023-09-01 20:43 | ED.GENMED ---
History of Present Illness
General
Chief Complaint: Dizziness
Source: patient and ambulance crew
Exam Limitations: none
Time Seen by Provider: 09/01/23 20:40
Nursing documentation reviewed up to this point in time: agreed with
History of Present Illness
History of Present Illness:
77-year-old female presents emergency department due to elevated blood pressure, lightheadedness and blurry vision. Blood pressure was 200/100 for EMS. She takes losartan. She was recently taking prednisone. Left total knee arthroplasty 4 days
ago.
Past History
Past History
ED Past Medical History: HTN
ED Past Surgical History: None
Social History
Tobacco: Non-smoker
Alcohol: None
Drug: None
Personal:
Living: with family
Review of Systems
Review of Systems
Allergies reviewed?: Yes
All Other Systems: Not applicable
Constitutional: Reports no symptoms
EENT: Reports other (Blurry vision)
Respiratory: Reports no symptoms
Cardiac: Reports no symptoms
ABD/GI: Reports no symptoms
: Reports no symptoms
Musculoskeletal: Reports no symptoms
Skin: Reports no symptoms
Neurological: Reports dizzy and headache
Endocrine: Reports no symptoms
Hematologic/Lymphatic: Reports no symptoms
Psychiatric: Reports no symptoms
Phy Exam
Physical Exam
Physical Exam:
Physical Exam
General: no apparent distress, not acutely ill
Neck: supple. no meningeal signs. normal posterior pharynx
Heart: s1/s2 regular rate and rhythm, no murmur. equal radial
pulses.
HEENT: Pupils equal round reactive to light, EOMI
Lungs: no acute respiratory distress. clear bilaterally
Abdomen: normal bowel sounds. not tender. no CVAT
Neuro: alert and oriented. no focal neurological deficits cranial nerves II through XII intact
Skin: no rash ecchymosis left lower leg
Psychiatric: well kept. interactive and cooperative
Extremities: Mild edema left lower leg, dressing clean dry intact left knee. no calf tenderness. negative homans. good distal pulses
Course
Orders/Labs/Results
Orders:
Orders
09/01/23 20:40
IV Insert/Care/Rem.- Treatment PRN
Pulse Ox/cont/shift [RESP] Stat
Quantity: 1
09/01/23 20:41
Electrocardiogram (*1) Stat
Reason for Study: Other
Other Reason for Exam: chest pain
Cardiac Monitoring- Treatment ONCE
EKG- Treatment ONCE
09/01/23 20:42
CT Head W/o Iv Contrast Urgent
Comment:
Reason For Exam: headache, blurry vision
09/01/23 20:43
US Periph Venous LOWER Ext LT Urgent
Comment:
Reason For Exam: left leg swelling
09/01/23 21:03
Complete Blood Count/With Diff Urgent
09/01/23 22:02
Comprehensive Metabolic Panel Urgent
Magnesium Urgent
09/01/23 22:21
Amlodipine [Norvasc] 5 mg PO STAT STA
Abnormal Lab Results
09/01/23
21:03
RBC 4.16 L 10^6/uL
(4.20-5.40)
Hct 35.6 L %
(37.0-47.0)
Abs Immat Gran (auto) 0.1 H 10^3/uL
(0-0.05)
Absolute Neuts (auto) 6.6 H 10^3/uL
(1.4-6.5)
Absolute Monos (auto) 0.8 H 10^3/uL
(0.1-0.6)
Immature Gran % 0.7 H %
(0-0.5)
Lymphocytes % 16.0 L %
(20.5-51.1)
09/01/23 21:03
Vital Signs
Initial and Last Documented VS:
Initial Vital Signs
Temp Pulse Resp BP Pulse Ox
98.3 F 96 18 185/111 96
09/01/23 20:34 09/01/23 20:34 09/01/23 20:34 09/01/23 20:34 09/01/23 20:34
Last Documented Vital Signs
Temp Pulse Resp BP Pulse Ox
98.3 F 83 19 174/156 96
09/01/23 20:34 09/01/23 21:45 09/01/23 21:45 09/01/23 21:00 09/01/23 20:34
MDM/Problems Addressed
Differential Diagnosis Includes:
CVA, DVT, symptomatic hypertension
MDM/Problems Addressed:
77-year-old female with symptomatic hypertension. Do not suspect CVA. No signs of DVT. Patient stable for discharge.
Chronic conditions affecting care: HTN
Acute Exacerbation and/or Progression of Chronic Illness: HTN
*Radiology
Radiology exam reviewed: radiology read reviewed (CT head no acute findings, ultrasound left lower extremity no DVT)
*Pulse Oximetry
Patient hypoxic: no
*EKG
Interpreted by ED Provider?: Yes
EKG Intrepretation Date: 09/01/23
EKG Intrepretation Time: 20:49
Interpretation: abnormal
Comparison EKG: no changes
Heart Rate: 80
Rate: normal
Rhythm: sinus and PVC's
[place]: normal axis
Interval: normal interval
QRS Pattern: normal QRS
Ischemia: no ischemia
*Job Recruiter Interpretation
Rate: normal
Interpretation: normal
Heart Rate: 82
Rhythm: sinus
*Critical Care Note
Total Time (30-74mins, 75-104mins- exclusive of procedures): Not Applicable
Data Reviewed
Review of Other/Old Records Reveals: Operative Reports (left TKA 08/28/2023)
Source: records
Patient Management
Social determinants of health affecting care: Living situation
Escalation/DeEscalation of care consider admission/obs:
admit not indicated
ED Attending Note
-
Portions of this chart may have been created with voice recognition software.� Occasional wrong word or��sound alike� substitutions may have occurred due to the inherent limitations of voice recognition software.
Discharge Plan
Departure
Patient Disposition: Home (Routine Discharge)
Date of Disposition: 09/01/23
Time of Disposition: 22:28
Patient with high blood pressure during this ER visit?: Yes
Condition: Good
Discharge Problem:
Hypertensive urgency
Instructions: Dizziness, BLOOD PRESSURE
Prescriptions:
No Action
simvastatin 20 mg Tablet
20 mg PO HS
multivitamin Tablet
1 tab PO DAILY
cetirizine [Zyrtec] 10 mg Tablet
10 mg PO 1400
ascorbic acid (vitamin C) [Vitamin C] 500 mg Tablet
500 mg PO DAILY
zinc 25 mg Tablet
25 mg PO DAILY
losartan 25 mg Tablet
25 mg PO DAILY
pyridoxine (vitamin B6) 100 mg Tablet
100 mg PO DAILY
fluticasone propionate 50 mcg/actuation [place],Suspension
1 spray INTRANASAL DAILY
cholecalciferol (vitamin D3) [Vitamin D3] 25 mcg (1,000 unit) Tablet
25 mcg PO DAILY
mecobalamin (vitamin B12) [B12 Active] 1,000 mcg Tablet,Chewable
1,000 mcg PO DAILY
mupirocin 2 % ointment
1 applic topical BID Qty: 1 0RF
prednisone 10 mg tablet
40 mg PO TAPER Qty: 20 0RF
Rx Instructions:
4 TABS X 2 DAYS, 3 TABS X 2 DAYS, 2 TABS X 2 DAYS, 1 TAB X 2 DAYS, THEN STOP
tramadol 50 mg tablet
50 mg PO Q6H PRN (Reason: 1 tab moderate pain, 2 if severe) Qty: 30 0RF
Rx Instructions:
ongoing therapy
famotidine 20 mg tablet
20 mg PO HS Qty: 30 0RF
Rx Instructions:
post-op
gabapentin 300 mg capsule
300 mg PO HS Qty: 10 0RF
ondansetron 4 mg tablet,disintegrating
4 mg PO Q6H PRN (Reason: n/v) Qty: 20 0RF
Rx Instructions:
take 1/2h b/f pain med if recurrent nausea
allow to dissolve in mouth w/o water
sennosides [Senokot] 8.6 mg tablet
17.2 mg PO BID Qty: 2 0RF
aspirin 325 mg tablet
325 mg PO DAILY Qty: 1 0RF
Rx Instructions:
Take with food
magnesium hydroxide [Milk of Magnesia] 400 mg/5 mL suspension
30 ml PO HS PRN (Reason: Constipation) Qty: 1 0RF
docusate sodium [Colace] 100 mg capsule
100 mg PO BID Qty: 1 0RF
acetaminophen [Tylenol] 325 mg capsule
650 mg PO QID Qty: 2 0RF
aspirin 81 mg Capsule
81 mg PO DAILY
Referrals:
Geraldine Balderas DO [Family Provider] - Call in 1-3 days for appt
Activity Restrictions/Additional Instructions:
You can stop taking the prednisone. You can also stop taking the Neurontin/gabapentin, return for any concerns..
Interventions
Interventions:
*Risk Screen - Suicide Last Done: 09/01/23 20:34
*General Assessment Last Done: 09/01/23 20:34
*Neglect/Abuse Screening Last Done: 09/01/23 20:34
ED- Fall Risk Assessment Last Done: 09/01/23 21:42
ED- Neurological Assessment Last Done: 09/01/23 21:42
ED Swallowing Screen Last Done: 09/01/23 21:42
Discharge Date and Time
Print Language: UKRAIN[place]
[2023-09-01 21:00] VITALS: BP 174/156
[2023-09-01 21:11] LABS: % Basophils 0.2 % (0-2); % Eosinophils 0.1 % (0-6); % Immature Granulocytes 0.7 % (0-0.5); % Monocytes 9.2 % (1.7-9.3); % Neutrophils 73.8 % (42.2-75.2); Absolute Immature Granulocytes 0.1 10^3/uL (0-0.05); Absolute Lymphocytes 1.4 10^3/uL (1.2-3.4); Absolute Monocytes 0.8 10^3/uL (0.1-0.6); Absolute Neutrophils 6.6 10^3/uL (1.4-6.5); Hematocrit 35.6 % (37.0-47.0); Mean Corp Hgb Conc. 33.7 g/dL (33.0-37.0); Mean Corpuscular Hgb 28.8 pg (27.0-31.0); Mean Corpuscular Volume 85.6 fL (81.0-99.0); Mean Platelet Volume 8.9 fL (7.4-10.4); Nucleated Red Blood Cells % 0 %; Platelet Count 246 10^3/uL (130-400); Red Blood Cell Count 4.16 10^6/uL (4.20-5.40); Red Cell Dist. Width 13.1 % (11.5-14.5)
[2023-09-01 21:57] VITALS: BP 178/96
[2023-09-01 22:29] LABS: ALT (SGPT) 29 U/L (0-35); AST (SGOT) 35 U/L (14-36); Albumin 3.8 g/dl (3.5-5.0); Alkaline Phosphatase 95 U/L (38-126); Blood Urea Nitrogen 20 mg/dl (7-17); Calcium 9.6 mg/dl (8.4-10.2); Carbon Dioxide 28 mmol/L (22-30); Chloride 105 mmol/L (98-107); Estimated Creatinine Clearance 47 ml/min; Glucose 126 mg/dl (70-99); Magnesium 2.1 mg/dl (1.6-2.3); Sodium 141 mmol/L (135-145); Total Bilirubin 0.6 mg/dl (0.2-1.3); Total Protein 6.5 g/dl (6.3-8.2); eGFR > 60.00
== END 2023-09-01 23:01 | disposition home or self-care (01) ==
LOC: EMR 20:30
PROVIDERS: EMERGENCY PHYSICIAN Emergency Medicine; FAMILY PHYSICIAN Internal Medicine
DX: I16.0 Hypertensive urgency (principal); R51.9 Headache, unspecified; R42 Dizziness and giddiness; R60.0 Localized edema; H53.8 Other visual disturbances; Z96.652 Presence of left artificial knee joint; Z98.890 Other specified postprocedural states; Z79.82 Long term (current) use of aspirin; Z79.899 Other long term (current) drug therapy; Z91.048 Other nonmedicinal substance allergy status
CPT/HCPCS: 70450; 80053; 83735; 85025; 93005; 93971; 94760; 99285

== ENCOUNTER → 2024-02-06 12:14 | Outpatient (REF) | payer MEDICARE, BC, SELFPAY | LOC: HWRAD 12:14 | PROVIDERS: ATTENDING PHYSICIAN Family Medicine | DX: M19.071 Primary osteoarthritis, right ankle and foot (principal); M19.072 Primary osteoarthritis, left ankle and foot | CPT/HCPCS: 73600 ==

== ENCOUNTER → 2024-05-12 14:53 | Outpatient (REF) | payer MEDICARE, BC, SELFPAY | LOC: HWWDC 14:53 | PROVIDERS: ATTENDING PHYSICIAN Internal Medicine | DX: Z12.31 Encounter for screening mammogram for malignant neoplasm of breast (principal) | CPT/HCPCS: 77063; 77067 ==

== ENCOUNTER → 2024-11-16 12:44 | Outpatient (REF) | payer MEDICARE, BC, SELFPAY | LOC: HWRAD 12:44 | PROVIDERS: ATTENDING PHYSICIAN Internal Medicine | DX: N93.9 Abnormal uterine and vaginal bleeding, unspecified (principal) | CPT/HCPCS: 76830; 76856 ==

== ENCOUNTER → 2025-01-03 13:32 | Outpatient (REF) | payer MEDICARE, BC, SELFPAY | LOC: RCS 13:32 | PROVIDERS: ATTENDING PHYSICIAN Internal Medicine | DX: R00.2 Palpitations (principal) | CPT/HCPCS: 93225; 93226 ==